=== PATIENT | male | born 1995 | race Caucasian/White ===

== ENCOUNTER 2021-04-09 13:17 | Emergency (ER) | payer OTHER, SELFPAY ==
--- NOTE | ~2021-04-09 | XR_ITS ---
XR chest 2V DATE: 04/09/2021 14:02 INDICATION: Cough, shortness of breath, fever. Covid-positive. TECHNIQUE: 2 views COMPARISON: None FINDINGS: There are patchy bilateral pulmonary infiltrates scattered throughout both lungs, consisten t with bilateral multifocal Covid pneumonia. No pleural effusion. No pulmonary vascular congestion or pneumothorax. Normal heart size. Included skeletal structures appear normal. IMPRESSION: Extensive patchy bilateral pulmonary infiltrates consistent with Covid pneumonia Reviewed, dictated and finalized at location A. IMPRESSION: Extensive patchy bilateral pulmonary infiltrates consistent with Co vid pneumonia
[2021-04-09 13:27] VITALS: BP 124/80; PULSE 86; RESP 20; TEMP 36.2; O2SAT 96
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
== END 2021-04-09 14:37 | disposition home or self-care (01) ==
PROVIDERS: Emergency Provider Nurse Practitioner; PCP Family Medicine
DX: U07.1 COVID-19 (principal); J12.82 Pneumonia due to coronavirus disease 2019; I10 Essential (primary) hypertension
CPT/HCPCS: 71046; 87081; 87880; 99213; G0463

== ENCOUNTER 2022-09-22 13:35 | Emergency (ER) | payer OTHER, BC, SELFPAY ==
--- NOTE | ~2022-09-22 | XR_ITS ---
EXAMINATION: XR ankle LT min 3V DATE: 09/22/2022 14:19 INDICATION: Left ankle pain, initial encounter TECHNIQUE: Anteroposterior, lateral, mortise, and additional oblique view of the ankle were obtained. COMPARISON: None. FINDINGS: There is lateral soft tissue swelling of ankle near the distal fibula. Bone alignment is no rmal. There is no fracture. IMPRESSION: 1. Ankle soft tissue swelling without acute osseous abnormality. Reviewed, dictated and finalized at location A. PHYSICIST
[2022-09-22 14:00] VITALS: BP 148/84; PULSE 72; RESP 18; TEMP 36.6; O2SAT 100
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
== END 2022-09-22 14:39 | disposition home or self-care (01) ==
PROVIDERS: Emergency Provider Nurse Practitioner Family; PCP Nurse Practitioner Family
DX: S93.402A Sprain of unspecified ligament of left ankle, initial encounter (principal); S96.912A Strain of unspecified muscle and tendon at ankle and foot level, left foot, initial encounter; I10 Essential (primary) hypertension; X50.0XXA Overexertion from strenuous movement or load, initial encounter
CPT/HCPCS: 73610; 99213; G0463

== ENCOUNTER 2023-12-03 12:33 | Outpatient (CLI) | payer BC, SELFPAY ==
--- NOTE | ~2023-12-03 | MR_ITS ---
MRI of the right knee Clinical history: Pain Technique: Coronal proton density and proton density-weighted images, sagittal proton-density and T2 fat-sat images, and axial proton-density fat-saturated images were acquired. Findings: Anterior and posterior cruciate ligaments are intact. Medial collateral ligament and the la teral collateral ligament complex are intact. Popliteus tendon is intact. There is complex tearing of the posterior horn of the medial meniscus, extending to the body segment. Vertical tear may extend into the peripheral aspect of the anterior horn of the lateral meniscus. No lateral meniscal tear seen. Articular cartilage is relatively well preserved throughout the knee. Bone marrow signals are unremar kable. Extensor mechanism is intact. There is moderate joint effusion. No Miguel's cyst. Impression: Complex tearing involving essentially the entire medial meniscus, as detailed above. Moderate joint effusion. Reviewed, dictated and finalized at location . Impression: Complex tearing involving essentially the entire medial meniscus, as detailed a maximiliano. Moderate joint effusion.
== END 2023-12-03 12:34 ==
PROVIDERS: PCP Nurse Practitioner Adult Health; Visit Provider Nurse Practitioner Adult Health
DX: M25.461 Effusion, right knee (principal); S83.231A Complex tear of medial meniscus, current injury, right knee, initial encounter; X58.XXXA Exposure to other specified factors, initial encounter
CPT/HCPCS: 73721